=== PATIENT | male | born 1990 ===

== ENCOUNTER 2023-04-27 15:56 | Emergency (ER) | payer OTHER ==
[2023-04-27 16:01] VITALS: BP 112/71; PULSE 81; RESP 20; TEMP 98.6; BMI 32.3
[2023-04-27] MEDS ORDERED: IBUPROFEN 400 MG TABLET (FP) PO ONE ×2 (16:27→16:31)
== END 2023-04-27 16:48 | disposition home or self-care (01) ==
LOC: JERFT 15:56
DX: M25.522 Pain in left elbow (principal); M25.562 Pain in left knee; X50.9XXA Other and unspecified overexertion or strenuous movements or postures, initial encounter; Y99.0 Civilian activity done for income or pay
CPT/HCPCS: 73070-TC-LT-FY; 73562-TC-LT-FY; 99284-25